=== PATIENT | female | born 1945 | race Caucasian/White ===

== ENCOUNTER → 2017-05-25 | Outpatient (CLI) | payer MEDICARE, OTHER ==
[~2017-05-25] MED LIST: CEPHALEXIN500 M1 PO; CLIMARA.; DETROL LA4 PO; EPI EZ PEN1 MG/ML IM; FLEXERIL10 MG PO; NAPROXEN EC500 MG PO; NEXIUM40 MG PO; PERCOCET 325 MG1 TA2 PO; PREDNISONE 20MG20 MG PO; PREMARIN 0.60.625 MG PO
== END ==
LOC: MC.RAD 07:57
DX: Z12.31 Encounter for screening mammogram for malignant neoplasm of breast (principal); N63.21 Unspecified lump in the left breast, upper outer quadrant

== ENCOUNTER → 2017-05-31 | Outpatient (CLI) | payer MEDICARE, OTHER | LOC: MC.RAD 08:55 | DX: N63.20 Unspecified lump in the left breast, unspecified quadrant (principal); N64.89 Other specified disorders of breast ==

== ENCOUNTER → 2017-06-08 | Outpatient (CLI) | payer MEDICARE, OTHER | LOC: MC.RAD 07:29 | DX: N63.21 Unspecified lump in the left breast, upper outer quadrant (principal) ==

== ENCOUNTER 2021-04-15 20:43 | Observation (INO) | payer MEDICARE, OTHER ==
[~2021-04-15] VITALS: Ht 162.6 cm; Wt 71.0 kg
[2021-04-15 21:20] LABS: BASO # 0.1 K/mm3 (0.0-0.2); BASO % 0.8 % (0.0-2.0); EOS # 0.2 K/mm3 (0.0-0.7); EOS % 2.5 % (0-4.0); GRAN # 3.4 K/mm3 (1.4-6.5); GRAN % 52.9 % (42.2-75.2); HEMATOCRIT 37.4 % (37.0-47.0); HEMOGLOBIN 12.9 g/dl (12.5-16.0); LYMPH # 2.2 K/mm3 (1.2-3.4); MEAN CELL VOLUME 88 fl (80.0-100.0); MEAN CORPUSCULAR HEMOGLOBIN 30 pg (27.0-31.0); MEAN CORPUSCULAR HGB CONC 35 g/dl (33.0-37.0); MONO # 0.6 K/mm3 (0.1-0.6); MONO % 8.6 % (1.7-9.3); PLATELET COUNT 186 K/mm3 (130-400); RED BLOOD COUNT 4.26 M/mm3 (4.10-5.30); REDCELL DISTRIBUTION WIDTH-CV 12.5 % (11.5-14.5)
[2021-04-15 21:42] LABS: ALBUMIN 3.8 gm/dL (3.4-4.8); BILIRUBIN,TOTAL 0.3 mg/dL (0.2-1.2); CALCIUM 9.6 mg/dL (8.4-10.2); CREATININE, serum 0.74 mg/dL (0.57-1.11); POTASSIUM 4.2 mmol/L (3.5-4.5); TOTAL PROTEIN 7.1 gm/dL (6.2-8.1)
[2021-04-15 21:52] LABS: PROTHROMBIN TIME 10.9 SECONDS (9.7-12.8)
[2021-04-15 22:16] LABS: COLLECTION METHOD IN
[2021-04-15 22:21] LABS: MUCOUS Present /lpf; PH 6 (5-8); SQUAMOUS EPITHELIAL 0-2 /hpf; URINE APPEARANCE Hazy; URINE BACTERIA Rare /hpf; URINE BILIRUBIN Negative (NEGATIVE); URINE BLOOD Negative (NEGATIVE); URINE COLOR Yellow; URINE GLUCOSE Negative (NEGATIVE); URINE KETONE Negative (NEGATIVE); URINE LEUKOCYTE ESTERASE 3+ (NEGATIVE); URINE NITRATE Negative (NEGATIVE); URINE PROTEIN(semi-quant) Negative (NEGATIVE); URINE RBC 0-2 /hpf; URINE UROBILINOGEN Negative (NEGATIVE)
[2021-04-16] MEDS ORDERED: TAMOXIFEN CITRA20 MG PO (03:59)
[2021-04-16] MEDS ORDERED: MASON NATURAL2000 IU PO (04:01)
[2021-04-16] MEDS ORDERED: B-12 500 MCG PO (04:01)
[2021-04-16] MEDS ORDERED: OMEGA-3 1000 MG1 CAP PO (04:01)
[2021-04-16] MEDS ORDERED: SUDAFED60 MG PO (06:29)
[2021-04-16 13:00] VITALS: BP 133/84; PULSE 77; TEMP 98
[2021-04-16 16:35] VITALS: BP 166/90; PULSE 90; TEMP 97.9
[2021-04-16 19:50] VITALS: BP 145/76; PULSE 75; TEMP 98.5
--- NOTE | 2021-04-16 20:00 | NUR ---
Bedside shift report received, assumed care for shift superintendent. Assessment complete. A&Ox4. Denies nausea/shortness of breath. VS stable. C/O headache-rating pain 5/10 on pain scale-tylenol given per dr order. Neuros WNL. Right wrist INT flushes without difficulty. Plan of care discussed for this shift to include meds/neuro checks/vitals/calling for questions/concerns. Verbalizes understanding/denies needs. Call light in reach. Will monitor.
--- NOTE | 2021-04-17 00:30 | NUR ---
Neuros WNL. Denies current needs. Call light in reach. Will monitor.
[2021-04-17 00:37] VITALS: BP 127/67; PULSE 71; TEMP 97.6
[2021-04-17 05:04] VITALS: BP 131/61; PULSE 76; TEMP 98
--- NOTE | 2021-04-17 05:22 | NUR ---
Rested well this shift. Received tylenol x1 for a headache at 1999. VS remained stable. Neuros WNL. Denied any questions/concerns. Call light in reach. Will monitor.
[2021-04-17 07:11] VITALS: BP 147/81; PULSE 71; TEMP 98.3
[2021-04-17 07:24] LABS: CHOLESTEROL RISK RATIO 3.8
--- NOTE | 2021-04-17 07:39 | NUR ---
pt states headache on left side, radiating down left side of neck. rated 6/10, "bothersome"
--- NOTE | 2021-04-17 08:41 | NUR ---
Pt has been recieving oral tamoxifen daily. Hazardous drug precautions advise use of PPE [id number] when having contact with feces. Signage has been posted.
--- NOTE | 2021-04-17 09:25 | NUR ---
AURA met with the patient to discuss discharge plan. The patient was up walking and independent in her room. The patient lives in [place] with her , Vinnie ([phone]). She reports independence with ADLs and does not have any DME. The patient's PCP is Dr. Ronn Hoyt and she receives her medications from [facility]. She reports no difficulties obtaining her meds. The patient does not have a DPOA-HC in EMR, but she states that she does have one completed and that [facility] should have a copy of it. AURA contacted Tamara at [facility] and requested a copy. Tamara reports that they do have the DPOA-HC on file and will fax it to the medical unit. The patient plans to return home with her upon discharge. No additional needs at this time. *Discharge plan: home with *
--- NOTE | 2021-04-17 09:49 | NUR ---
SW received the patient's DPOA-HC. The patient's DPOA-HC is her .
--- NOTE | 2021-04-17 10:50 | NUR ---
PT ALERT AND ORIENTED, PT STATES HAVING HEADACHE THAT RADIATES DOWN LEFT SIDE OF NECK. PT INDEPENDENT IN ROOM. NEURO CHECK PERFORMED, NO SIGNIFICANT ALTERATIONS NOTED. PT LUNGS CLEAR TO AUSCULTATION. PT HAS 2+ PULSES IN ALL EXTREMITIES. BREAKFAST PROVIDED, NO OTHER NEEDS AT THIS TIME. PT CALL LIGHT WITHIN REACH.
[2021-04-17 11:38] VITALS: BP 143/82; PULSE 72; TEMP 98.3
--- NOTE | 2021-04-17 11:40 | NUR ---
notified of pt having paresthesias down left side. neuro check performed no significant changes noted. Dr. Azevedo notified, no further orders at this time.
[2021-04-17] MEDS ORDERED: ASPIRIN 81M81 MG/TA2 PO (12:12)
[2021-04-17] MEDS ORDERED: LIPITOR 40MG TA40 MG PO (12:12)
[2021-04-17] MEDS ORDERED: PLAVIX 75MG TAB75 MG PO (12:12)
--- NOTE | 2021-04-17 14:27 | NUR ---
Primary nurse was assisted with [id number] patient care by [employer] student Trudi Christianson and [employer] instructor Saranya Kirk MSN, RN
--- NOTE | 2021-04-17 14:44 | NUR ---
PT DISCHARGING, TELE AND IV (INT) DISCONTINUED. PT PRESENT AT BEDSIDE, ACCOMPANYING PT OUT OF BUILDING WITH [employer] EMPLOY[facility]. HEALTH SUMMARY AND DISCHARGE EDUCATION GIVEN TO BEST OF ABILITY.
== END 2021-04-17 14:52 | disposition home or self-care (01) ==
LOC: COL.ER 20:43 → MEDICAL 04-16 00:07
PROVIDERS: Student in an Organized Health Care Education/Training Program; ADMIT Internal Medicine
DX: I63.9 Cerebral infarction, unspecified (principal); R20.2 Paresthesia of skin; I10 Essential (primary) hypertension; N39.0 Urinary tract infection, site not specified; K21.9 Gastro-esophageal reflux disease without esophagitis; R32 Unspecified urinary incontinence; Z90.710 Acquired absence of both cervix and uterus; Z85.3 Personal history of malignant neoplasm of breast; Z79.899 Other long term (current) drug therapy; Z87.891 Personal history of nicotine dependence
CPT/HCPCS: A9585; G0378; J1650; J7030; Q9967

== ENCOUNTER → 2023-03-23 | Outpatient (CLI) | payer MEDICARE ==
[~2023-03-23] MED LIST changes: +ASPIRIN 81M81 MG/TA2 PO; +ASPIRIN E.C. 8181 MG PO; +B-12 500 MCG PO; +FISH OIL 1000MG1 CAP PO; +LIPITOR 40MG TA40 MG PO; +MASON NATURAL2000 IU PO; +NATURAL E400 IU PO; +NATURAL POTASS595 MG PO; +OMEGA-3 1000 MG1 CAP PO; +PLAVIX 75MG TAB75 MG PO; +PRESERVISION1 SGL PO; +SUDAFED60 MG PO; +TAMOXIFEN CITRA20 MG PO; +VITAMIN D31000 I1 PO; +ZYRTEC10MGSGL PO
== END ==
LOC: COL.RAD 03-17 15:00
DX: Z12.2 Encounter for screening for malignant neoplasm of respiratory organs (principal); R91.1 Solitary pulmonary nodule; Z87.891 Personal history of nicotine dependence

== ENCOUNTER → 2024-04-17 | Outpatient (CLI) | payer MEDICARE, OTHER | LOC: COL.RAD 08:07 | DX: Z12.2 Encounter for screening for malignant neoplasm of respiratory organs (principal); J98.4 Other disorders of lung ==